=== PATIENT | male | born 1930 | race Two or more races ===

== ENCOUNTER 2019-02-27 09:14 | Emergency (ER) | payer MEDICARE ==
[~2019-02-27] VITALS: Ht 188 cm; Wt 95.7 kg
--- NOTE | 2019-02-27 09:16 | NUR ---
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 TO ER BED 9, HOOKED TO MONITOR, CHANGED TO HOSP GOWN, PROVIDED W WARM BLANKET, AOx3, BREATHING EVEN AND UNLABORED, AWAITING MD ARMSTRONG.
--- NOTE | 2019-02-27 09:17 | NUR ---
DR NEWELL AT BEDSIDE
[2019-02-27] MEDS ORDERED: TDAP [DIPH/PERTUSSIS/TET] 0.5 ML VIAL IM ONE ×2 (09:30→09:50)
[2019-02-27] MEDS ORDERED: HYDROCODONE/APAP 10/325MG 1 EA TABLET PO ONE (09:30)
--- NOTE | 2019-02-27 09:39 | NUR ---
INBOUND SALES CONSULTANT AT BEDSIDE
[2019-02-27] MEDS ORDERED: HYDROCODONE/APAP 10/325MG 1 EA TABLET ONE (09:50)
--- NOTE | 2019-02-27 10:27 | NUR ---
CALLED [facility] [phone] JERED--- IT WAS JUST READ
--- NOTE | 2019-02-27 11:30 | NUR ---
Patient discharged to home in stable condition. Written and verbal after care instructions given. Patient verbalizes understanding of instruction. Addendum: 02/27/19 at 1131 by FORREST Patient discharged with daughter in stable condition. Written and verbal after care instructions given. Patient and daughter verbalizes understanding of instruction. Daughter will bring patient back to the [facility] [place].
[2019-02-27 11:32] VITALS: BP 147/84
== END 2019-02-27 11:32 | disposition home or self-care (01) ==
LOC: ER 09:18
DX: S20.211A Contusion of right front wall of thorax, initial encounter (principal); S20.411A Abrasion of right back wall of thorax, initial encounter; S30.811A Abrasion of abdominal wall, initial encounter; I10 Essential (primary) hypertension; E11.9 Type 2 diabetes mellitus without complications; W01.198A Fall on same level from slipping, tripping and stumbling with subsequent striking against other object, initial encounter; Y93.89 Activity, other specified; Y92.091 Bathroom in other non-institutional residence as the place of occurrence of the external cause; Y99.8 Other external cause status
CPT/HCPCS: 71100-TC; 82962-TC; 90715